=== PATIENT | male | born 1995 | race Caucasian/White ===

== ENCOUNTER → 2020-09-24 15:17 | Outpatient (CLI) | payer OTHER, SELFPAY ==
--- NOTE | 2020-09-24 15:20 | DI.MRI.S_ITS ---
PROCEDURE: MR WRIST RT WO CON INDICATIONS: PAIN IN RIGHT WRIST TECHNIQUE: Noncontrast coronal proton density fast spin echo and T2 fast spin echo with fat saturation; coronal 3-D gradient echo, axial T1 spin echo and T2 fast spin echo with fat saturation, sagittal T1 spin echo through the wrist. COMPARISON: None. FINDINGS: Image quality: Excellent. Bones and cartilage: The carpal bones are normally aligned increased T2 signal noted in the mid aspect and proximal pole of the scaphoid compatible with edema. No scaphoid fracture. No evidence for avascular necrosis. Overlying cartilage surfaces appear normal. Carpal ligaments: The scapholunate and lunotriquetral ligaments appear intact. In the absence of intra-articular contrast, the extrinsic carpal ligaments are not well identified. On sagittal images, the pisohamate ligament appears intact. Triangular fibrocartilage complex: The triangular fibrocartilage appears intact. The adjacent meniscal homolog appears normal in the absence of intra-articular contrast. The extensor carpi ulnaris tendon is normal in location and morphology. Tendons and soft tissues: The carpal tunnel structures appear normal, including the median nerve. The ulnar nerve appears normal within Guyon's canal. All six extensor tendon compartments demonstrate normal morphology, without pathologic tendon sheath fluid. No soft tissue ganglion cysts. IMPRESSION: 1. Nonspecific marrow edema involving the scaphoid. In the setting of trauma finding could represent osseous contusion. 2. No fracture. Dictated by: Daily Boucher MD, PhD on 09/26/2020 at 12:12 Approved by: Daily Boucher MD, PhD on 09/26/2020 at 13:21
== END ==
PROVIDERS: Referring Provider Orthopaedic Surgery; Visit Provider Orthopaedic Surgery
DX: M25.531 Pain in right wrist (principal); M25.831 Other specified joint disorders, right wrist
CPT/HCPCS: 73221

== ENCOUNTER → 2020-11-28 13:26 | Outpatient (CLI) | payer OTHER, SELFPAY ==
[2020-11-28 14:48] LABS: COVID19 -Nasal RAPID Negative (Negative)
== END ==
PROVIDERS: Visit Provider Surgery
DX: Z20.822 Contact with and (suspected) exposure to COVID-19 (principal)
CPT/HCPCS: 87635; C9803

== ENCOUNTER 2020-11-29 10:00 | Day surgery (SDC) | payer OTHER, SELFPAY ==
[2020-11-28 13:53] VITALS: BMI 28.4
[2020-11-29 10:16] VITALS: BP 120/82; PULSE 97; RESP 14; TEMP 36.6; O2SAT 99; BMI 28.4
[2020-11-29] MEDS: LACTATED RINGERS 1,000 ML 100 ML IV ×2 (10:28→12:10)
--- NOTE | 2020-11-29 10:57 | PM.PREOP ---
Pre-operative Note Interval Note History & Physical reviewed/Exam performed by Physician: Yes Changes to H&P: No
[2020-11-29] MEDS: CEFAZOLIN 1 GM VIAL 2 GM IV (11:18)
--- NOTE | 2020-11-29 11:48 | SUR.OPER ---
Supine on padded OR bed, head on pillow, arms secured on padded arm boards at <90 degrees abduction, legs uncrossed, safety belt at thigh, tape over blanket over lower legs.
[2020-11-29] MEDS: BUPIVACAINE 0.25% (PF) VIAL 30 ML INJ (11:56)
[2020-11-29 12:38] VITALS: BP 107/53; PULSE 71; RESP 12; O2SAT 97
[2020-11-29 12:42] VITALS: BP 125/87; PULSE 90; RESP 12; O2SAT 100
[2020-11-29] MEDS: fentaNYL 100 MCG/2 ML INJ IV ×2 (12:45→12:58)
[2020-11-29 12:47] VITALS: BP 124/80; PULSE 87; RESP 16; O2SAT 100
--- NOTE | 2020-11-29 12:47 | P.OP_ITS ---
Operative Date/Time/Diagnoses Date of procedure: 11/29/20 Time of procedure: 12:47 Pre-op diagnosis: reducible right inguinal hernia Post-op diagnosis: same Procedure & Clinicians Procedure: Open right inguinal hernia repair with mesh Same procedure as scheduled: Yes Indications: Reducible right inguinal hernia Surgeon: Magnus Mooney Yes if Unassisted: Yes Anesthesia Type: General Operative Notes Findings: Moderate size direct floor defect. No indirect hernia. Specimen(s): none sent Estimated Blood Loss (mL): 20 Procedure in detail: The patient was placed supine on the table and bilateral lower extremity compression devices were applied. Anesthesia was induced they were intubated with an LMA and received 2g of Ancef. A time-out was performed. They were prepped and draped in sterile fashion. The right external inguinal ring and the anterior superior iliac crest were identified and marked. 1 finger breath above the inguinal ligament the skin was infiltrated with 0.25% bupivacaine. The skin incision was made here and the subcutaneous tissues were divided with electrocautery exposing the external oblique aponeurosis which was then opened along the direction of its fibers. Using blunt dissection the internal oblique aporneurosis was from the external oblique upper leaflet to identify the iliohypogastric nerve. Using a kittner the cord was carefully dissected away from the inguinal canal adjacent to the pubic tubercle. The cord including the vas deferens, testicular bloody supply, ilioguinal and genital nerve were encircled with a Neal drain. A moderate size direct floor defect was identified and it was reduced into the abdomen plug of mesh was place d into the floor defect. The internal oblique aporneuorsis was approximated to the inguinal ligament with Ethibond suture to reapproximate the floor over the plug. The cremasteric fibers surrounding the cord were divided using electrocautery adjacent to the internal ring.. The vas deferens and the testicular vessels were preserved and protected. The cord structures were explored, no indirect hernia was identified. I selected a 7x 15 cm lightweight Pro Loop hernia mesh. The inferior medial aspect of the mesh was anchored to insertion of the rectus muscle to the pubic tubercle such that there was approximately 2 cm of tubercle overlap with Ethibond and then was run continuously along the inferior edge of the mesh to the shelving edge of the inguinal ligament. Interrupted 3 0 Vicryl suture was used to anchor the superior aspect of the mesh to the conjoined tendon in several places. The tails were then reapproximated loosely around the spermatic cord. The tails of the mesh were then tucked under the external oblique aponeurosis. The repair was checked for hemostasis. The wound was irrigated with sterile saline. The external oblique aponeurosis was reapproximated in a running fashion using 3 0 Vicryl. The subcutaneous tissues were reapproximated with 3 0 Vicryl skin closed with 4 0 Monocryl followed by the application of Dermabond. At the end of the operation I ensured that both testicles were within the scrotum. The sponge instrument count at the end operation was correct. The patient emerged from anesthesia was extubated and transferred to the postoperative care unit in stable condition. A total of 30 ml of of 0.25% bupivicaine was used to infiltrate the skin. Complications: none Post-operative Condition: stable Disposition: same day surgery
[2020-11-29] MEDS: OXYCODONE/ACETAMINOPHEN 5/325 TABLET 1 TAB PO (12:49)
[2020-11-29 13:00] VITALS: BP 104/69; PULSE 90; RESP 12; TEMP 36.2; O2SAT 98
[2020-11-29 13:45] VITALS: BP 126/72; PULSE 84; RESP 16; TEMP 36.7; O2SAT 98
--- NOTE | 2020-11-29 13:54 | SUR.PHASEII ---
Patient c/o right hip numbness with transition from phase 1 to phase 2; Assisted patient to standing position and patient's right leg gives way. Patient unable to bear weight. Patient able to bed knee but has weakness to right foot. Notified Dr Mckoy of findings. Per Dr Mckoy, local numbing medication will wear off and patient may be discharged home. Provided detailed instructions to patient and regarding weakness to right leg and things to watch out for. Patient home with in stable condition.
== END 2020-11-29 13:45 | disposition home or self-care (01) ==
PROVIDERS: Referring Provider Surgery; Visit Provider Surgery
PROC: (CPT 49505; principal; 2020-11-29 11:45)
DX: K40.90 Unilateral inguinal hernia, without obstruction or gangrene, not specified as recurrent (principal)
CPT/HCPCS: 49505; C1781; J0690; J1100; J1885; J2405; J2704; J3010

== ENCOUNTER → 2023-09-04 16:56 | Outpatient (CLI) | payer OTHER, SELFPAY ==
--- NOTE | 2023-09-04 16:57 | DI.MRI.S_ITS ---
PROCEDURE: MR ORBITS FACE NECK WO/W CON INDICATIONS: Unspecified deformity of orbit TECHNIQUE: Noncontrast sagittal T1 spin echo, axial FLAIR, axial gradient echo, axial diffusion and ADC acquired through the brain. Coronal STIR, thin-slice axial T1 spin echo through the orbits. After the administration of contrast, thin-slice axial and coronal T1 spin echo with fat saturation through the orbits, axial and coronal and sagittal T1 spin echo with fat saturation through the brain. COMPARISON: None. FINDINGS: Image quality: Excellent. Orbits: Within the superior medial aspect of the left orbit, there is an enhancing mass seen that measures 1.5 x 1.2 x 1.1 cm. Mild mass effect can be seen upon the left globe, which is deviated inferiorly. Globes are symmetrical. The optic nerves are normal in size, without abnormal signal or enhancement. The extra-ocular muscles are normal and symmetric in appearance. Lacrimal glands are normal. Optic chiasm is normal. Periorbital soft tissues appear normal. CSF spaces: Ventricles are normal in size and shape. Basal cisterns are patent. No extra-axial fluid collections. Brain: No intracranial bleeds or mass effects. No abnormal intracranial enhancement. Mathur-white matter interface is intact. Diffusion weighted images demonstrate no acute ischemic insults. Pituitary gland appears normal, without sellar or suprasellar masses. Brainstem appears normal. Normal intravascular flow voids are present. Skull and face: Calvarial marrow is normal in signal. Sinuses: Sinuses and mastoids are clear. IMPRESSION: There is a 1.5 cm enhancing mass within the superior medial aspect of the left orbit, with mass effect upon the left globe. Although nonspecific, please consider orbital lymphoma in this patient. Dictated by: Geraldo Dominguez M.D. on 09/04/2023 at 17:40 Approved by: Geraldo Dominguez M.D. on 09/04/2023 at 17:42
== END ==
PROVIDERS: Referring Provider Preventive Medicine Aerospace Medicine; Visit Provider Preventive Medicine Aerospace Medicine
DX: H05.30 Unspecified deformity of orbit (principal)
CPT/HCPCS: 70543; A9579